=== PATIENT | female | born 1975 | race Caucasian/White ===

== ENCOUNTER 2024-05-29 09:30 | Outpatient (RCR) | payer BC, SELFPAY | END 2024-05-29 11:09 | disposition home or self-care (01) | PROVIDERS: PCP Family Medicine; Visit Provider Family Medicine | DX: M25.521 Pain in right elbow (principal); M25.511 Pain in right shoulder; G89.29 Other chronic pain; Z51.89 Encounter for other specified aftercare | CPT/HCPCS: 97035; 97110; 97140; 97165; 97530; 97535; X5282 ==